=== PATIENT | female | born 1980 | race African-American/Black ===

== ENCOUNTER 2022-02-03 22:50 | Emergency (ER) | payer SELFPAY ==
--- NOTE | 2022-02-03 22:51 | PC.NURSE ---
After patient was about to receive her bracelet, patient stated she did not want to be seen. Patient states I am fine, nevermind.
== END 2022-02-03 22:51 | disposition left against medical advice (07) ==
LOC: ANHED 23:00
DX: Z53.21 Procedure and treatment not carried out due to patient leaving prior to being seen by health care provider (principal)
CPT/HCPCS: 99199